=== PATIENT | female | born 1985 | race Caucasian/White ===

== ENCOUNTER 2021-01-23 10:33 | Emergency (ER) | payer OTHER, SELFPAY ==
--- NOTE | 2021-01-23 10:47 | PC.NURSE ---
Pt came to intake desk stating she doesnt want to wait and will go to another hospital. Pt ambulatory on discharge and told she is welcome to come back and be seen at anytime.
== END 2021-01-23 10:47 | disposition left against medical advice (07) ==
DX: Z53.21 Procedure and treatment not carried out due to patient leaving prior to being seen by health care provider (principal)
CPT/HCPCS: 99199

== ENCOUNTER 2022-12-09 17:09 | Emergency (ER) | payer OTHER, MEDICAID, SELFPAY ==
[2022-12-09 17:23] VITALS: BP 148/95; PULSE 114; RESP 18; TEMP 37; O2SAT 98
--- NOTE | 2022-12-09 17:32 | ED.URI ---
HPI - URI/Sore Throat General Chief Complaint: Upper Respiratory Infection Stated Complaint: Ear Pain/Sinus Congestion Time Seen by Provider: 12/09/22 17:50 Source: patient, RN notes reviewed and old records reviewed Mode of arrival: ambulatory Limitations: no limitations History of Present Illness HPI Narrative: 37-year-old female presents to the [facility] with complaints of a sore throat since having a upper GI study scope on 1 week ago. States that she woke up today with left ear pain and left sinus pressure. States that she tried calling her primary care provider and was not able to get her in today. Denies fevers. States that she uses a nasal spray, takes singular are as well as Zyrtec every day Related Data Home Medications Medication Instructions Recorded Confirmed azelastine 137 mcg (0.1 %) nasal intranasal 12/09/22 spray aerosol fluticasone propionate 50 intranasal 12/09/22 mcg/actuation nasal spray,suspension hyoscyamine sulfate 0.375 mg mg PO 12/09/22 tablet,extended release,12 hr norethindrone acetate 1.5 tablet 12/09/22 mg-ethinyl estradiol 30 mcg tablet (June) Allergies Allergy/AdvReac Type Severity Reaction Status Date / Time clindamycin Allergy Verified 10/08/11 04:45 Review of Systems Review of Systems: All systems reviewed & are unremarkable except as noted in HPI and below Constitutional: Constitutional: Reports no additional constitutional complaints Eyes: Eyes: Reports no additional eye complaints ENT: Reports as per HPI Cardiovascular: Cardiovascular: Reports no additional cardiovascular complaints, Denies chest pain and Denies dyspnea Respiratory: Respiratory: Reports no additional respiratory complaints, Denies chest congestion, Denies cough and Denies dyspnea Gastrointestinal: Gastrointestinal: Reports no additional gastrointestinal complaints, Denies abdominal pain, Denies nausea and Denies vomiting Musculoskeletal: Musculoskeletal: Reports no additional musculoskeletal complaints Integumentary/Breasts: Skin/Breast: Reports system reviewed and no additional complaints, except as docu Neurologic: Reports system reviewed and no additional complaints, except as documented Psychiatric: Psychiatric: Reports no additional psychiatric complaints Allergic/Immunologic: Allergic/Immunologic: Reports no additional allergic/immunologic complaints PMFSH Comments At the time of my signature, I reviewed and agree with the nursing past medical, surgical, social, and family history. There is no relevant family history pertinent to the patient complaint. Exam Const: General: cooperative, healthy appearing, comfortable, no acute distress, well developed, alert and well nourished Nutritional Appearance: well nourished and obese Orientation/consciousness: patient oriented x3 Limitations: no limitations HENMT: Head: normal to inspection Ears: hearing grossly normal bilaterally, external ears normal, TM's normal bilaterally and Abnormal EAC present erythema on the left and EAC tenderness on the left Face/Nose/Sinus: Normal external nose present, Normal nares present, Normal nasal mucous membranes and turbinates present, Normal septum present, No nasal discharge present, no nasal discharge noted, normal facial exam, sinuses nontender and face symmetric Face and sinus: normal facial exam Mouth: Yes Normal oral and palatal mucosa present, Yes lip normal and Yes moist mucous membranes Throat: posterior oropharynx normal, uvula midline and postnasal drainage Eyes: General: appearance normal, both eyes and all related structures Alignment and Position: alignment normal Periorbital: periorbital findings normal Pupils: Equal, round and reactive pupils present EOM: EOMs intact bilaterally Neck: Neck: normal visual inspection, full ROM, no lymphadenopathy and no meningeal signs Chest: Chest palpation & inspection: normal inspection of the chest Resp: Effort & Inspection:
== END 2022-12-09 18:08 | disposition home or self-care (01) ==
PROVIDERS: Emergency Provider Nurse Practitioner; PCP Family Medicine
DX: J32.9 Chronic sinusitis, unspecified (principal); H92.02 Otalgia, left ear
CPT/HCPCS: 99213; G0463

== ENCOUNTER 2023-03-22 15:04 | Emergency (ER) | payer OTHER, MEDICAID, SELFPAY ==
[2023-03-22 15:12] VITALS: BP 156/66; PULSE 98; RESP 18; TEMP 37.2; O2SAT 100
--- NOTE | 2023-03-22 15:14 | ED.URI ---
HPI - URI/Sore Throat General Chief Complaint: Upper Respiratory Infection Stated Complaint: sore throat Source: patient and RN notes reviewed Related Data Home Medications Medication Instructions Recorded Confirmed azelastine 137 mcg (0.1 %) nasal intranasal 12/09/22 spray aerosol amitriptyline 10 mg tablet 10 mg PO TID 03/22/23 03/22/23 dicyclomine 20 mg tablet 20 mg PO BID 03/22/23 03/22/23 Allergies Allergy/AdvReac Type Severity Reaction Status Date / Time clindamycin Allergy Hives Verified 03/22/23 15:12 Review of Systems Review of Systems: CONSTITUTIONAL: Denies fever, chills, or sweats. EYES: Denies visual changes, redness, or discharge. ENT: sore throat, right ear irritation CARDIOVASCULAR: Denies chest pain, palpitations, or edema. RESPIRATORY: Denies cough or dyspnea. GASTROINTESTINAL: Denies abdominal pain, nausea, vomiting, or diarrhea. GENITOURINARY: Denies dysuria or hematuria. SKIN: Denies rash or itching. MUSCULOSKELETAL: Denies back pain, joint pain, or myalgia. NEUROLOGIC: Denies headache, numbness, or weakness. Pertinent positives per HPI. PMFSH Comments At the time of my signature, I reviewed and agree with the nursing past medical, surgical, social, and family history. There is no relevant family history pertinent to the patient complaint. Exam Narrative: GENERAL: This is a well-nourished, well-developed patient, in no apparent distress. HEAD: normocephalic, atraumatic. EYES: Sclera clear/white. Vision is grossly intact. EARS: External ears normal, auditory canals clear and without drainage, TMs normal without perforation. Hearing grossly intact. NOSE: External nose normal with no obvious nasal discharge, nares without redness, no rhinorrhea. THROAT: Mucous membranes moist, posterior pharynx normal. NECK: Neck supple, non-tender without lymphadenopathy, masses or thyromegaly. CARDIOVASCULAR: Regular rate and rhythm without murmurs, gallops, or rubs. RESPIRATORY: Clear to auscultation. Breath sounds equal bilaterally. No wheezes, rales, or rhonchi. GASTROINTESTINAL: Abdomen soft, non-tender, nondistended. Bowel sounds are active. No hepato-splenomegaly, or palpable masses. No guarding. SKIN: warm, intact with no suspicious lesions or rash, good texture and turgor. NEURO: awake, alert, and oriented to person, place and time. There were no obvious focal neurologic abnormalities. Course Course Level of Care: Express Care Visit Vital Signs Vital signs: Vital Signs Temperature 98.9 F 03/22/23 15:12 Pulse Rate 98 03/22/23 15:12 Respiratory Rate 18 03/22/23 15:12 Blood Pressure 156/66 H 03/22/23 15:12 Pulse Oximetry 100 03/22/23 15:12 Oxygen Delivery Room Air 03/22/23 15:12 Temperature 98.9 F 03/22/23 15:12 Pulse Rate 98 03/22/23 15:12 Respiratory Rate 18 03/22/23 15:12 Blood Pressure 156/66 H 03/22/23 15:12 Pulse Oximetry 100 03/22/23 15:12 Oxygen Delivery Room Air 03/22/23 15:12 reviewed MDM - URI/Sore Throat MDM Narrative Medical decision making narrative: Rapid strep is negative in the office; however we will send to the lab for confirmation; there is a small percentage chance that it can come back positive; if it is, we will call you in 2-3days; and your prescription will be call in to your pharmacy. However, there is NO indication for antibiotic at this time. -Increase your fluids and Vitamin C. -Oral rinses such as: Salt water gargles and/or may use topical anesthetic (eg. Chloraseptic spray) or lozenges to relieve dryness or throat pain. -Take tylenol and ibuprofen as needed for pain and fever as directed. -Frequent hand washing or hand weatherization field technician is one of the best ways to prevent spread of infection. -Follow up with primary care provider in 2-3 days if condition is not improving or seek ER visit if your child starts breathing fast/has trouble breathing, is not drinking enough fluids, muffle voice, difficulty opening the mo
== END 2023-03-22 15:28 | disposition home or self-care (01) ==
PROVIDERS: Emergency Provider Nurse Practitioner Family; PCP Family Medicine
DX: J02.9 Acute pharyngitis, unspecified (principal)
CPT/HCPCS: 87081; 87880; 99213; G0463

== ENCOUNTER 2024-12-10 12:49 | Outpatient (CLI) | payer OTHER, SELFPAY ==
--- OUTSIDE RECORDS SUMMARY | 2024-12-10 12:54 | XMS_ITS | Clinical Summary ---
Author Organization [facility] Address [address] [place] [address] Care Team Providers Care Spa Consultant Name Role Phone Rodolfo Casas MD Primary Care Provider [phone] Allergies Active Allergy Reactions Criticality Noted Date Comments Clindamycin Hives High 07/01/2024 Medications FLUoxetine (PROzac) 20 mg tablet 5 Active albuterol HFA (PROVENTIL HFA,VENTOLIN HFA,PROAIR HFA) 90 mcg/actuation inhalerIndicati ons:Bronchitis Inhale 2 puffs every 4 (four) hours as needed for shortness of breath or wheezing (Cough) 18 g 5 Active inhalational spacing device (Aerochamber MV) spacerIndicatio ns:Bronchitis Use with albuterol inhaler 1 each 5 Active benzonatate (TESSALON) 200 mg capsuleIndicati ons:Bronchitis Take 1 capsule (200 mg total) by mouth 3 (three) times a day as needed for cough 30 capsule 5 Active Active Problems No known active problems Social History Tobacco Use Types Packs/Day Years Used Date Smoking Tobacco: Never Assessed Comments No Sex and Gender Information Value Date Recorded Sex Assigned at Not on file Legal Sex Female 2:14 PM OCCUPATIONAL HEALTH NURSING DIRECTOR Gender Identity Not on file Sexual Orientation Not on file Obstetrics History Last Filed Vital Signs Vital Sign Reading Time Taken Comments Blood Pressure 148/104 07/01/2024 7:58 PM OCCUPATIONAL HEALTH NURSING DIRECTOR Pulse 96 07/01/2024 8:03 PM OCCUPATIONAL HEALTH NURSING DIRECTOR Temperature 36.9 C (98.4 F) 07/01/2024 7:36 PM OCCUPATIONAL HEALTH NURSING DIRECTOR Respiratory Rate 18 07/01/2024 8:03 PM OCCUPATIONAL HEALTH NURSING DIRECTOR Oxygen Saturation 97% 07/01/2024 7:36 PM OCCUPATIONAL HEALTH NURSING DIRECTOR Inhaled Oxygen Concentration - - Weight 134.3 kg (296 lb) 07/01/2024 7:36 PM OCCUPATIONAL HEALTH NURSING DIRECTOR Height 167.6 cm (5' 6) 07/01/2024 7:36 PM OCCUPATIONAL HEALTH NURSING DIRECTOR Body Mass Index 47.78 07/01/2024 7:36 PM OCCUPATIONAL HEALTH NURSING DIRECTOR Plan of Treatment Health Maintenance Due Date Last Done Comments Cervical Cancer Screening 1986 Depression Screening 1986 Hepatitis C Screening 1986 DTaP/Tdap/Td Vaccine (1 - Tdap) 1997 Varicella Vaccines (1 of 2 - 13+ 2-dose series) 11/23/1999 Hepatitis B Screening 2004 Regular Well Visit/Exam 18-64 2004 HPV Vaccines (1 - 3-dose SCD M series) 2013 Covid-19 Vaccine (2 - 2023-2 5 season) 2024 08/22/2020 Influenza Vaccine (#1) 2025 02/20/2019 Pneumococcal vaccine <65 Aged Out No longer eligible based on patient's age to complete this topic Insurance [employer] OOS IDPA [employer] OPEN ACCESS Care Teams Spa Consultant Relationship Specialty Start Date End Date Rodolfo Casas MD PCP - General 01/23/21
--- OUTSIDE RECORDS SUMMARY | 2024-12-10 12:54 | XMS_ITS | Clinical Summary ---
Author Organization [facility] Address [address] [place] [address] Phone Care Team Providers Care Industrial Design Engineer Name Role Phone Rodlofo Casas MD Primary Care Provider [phone] Allergies Active Allergy Reactions Criticality Noted Date Comments Clindamycin Other (see Comments) 12/14/2017 Medications Azelastine-Flut icasone (DYMISTA) 137-50 MCG/ACT Suspension by Nasal route. Active montelukast (SINGULAIR) 10 MG Tablet Take 10 mg by mouth every evening. Active MRY-RB-GEATFTKI A 0.18/0.215/0.25 MG-25 MCG Tablet 8 Active Cetirizine HCl (ZYRTEC ALLERGY PO) Take by mouth. Active MICROGESTIN 1.5-30 MG-MCG Tablet 8 Active amoxicillin-cla vulanate (AUGMENTIN) 875-125 MG Tablet 5 Active FLUoxetine HCl, PMDD, 20 MG Tablet 5 Active HYDROcodone-ivette taminophen (NORCO) 5-325 MG Tablet take 1 tablet by mouth three times daily as needed 5 Active predniSONE (DELTASONE) 10 MG Tablet TAKE 6 TABLETS BY MOUTH ONCE DAILY FOR 2 DAYS THEN TAKE 5 TABS ONCE DAILY FOR 2 DAYS THEN TAKE 4 TABS ONCE DAILY FOR 2 DAYS THEN TAKE 3 TABS ONCE DAILY FOR 2 DAYS THEN TAKE 2 TABS ONCE DAILY FOR 2 DAYS THEN TAKE 1 TAB ONCE DAILY FOR 2 DAYS 5 Active albuterol (PROVENTIL, VENTOLIN) (2.5 MG/3ML) 0.083% Nebulizer Soln 8 12/07/19 Discontinu ed(Duplica te Order) VENTOLIN HFA 108 (90 Base) MCG/ACT Aerosol Solution 8 12/07/19 25 Discontinu ed(Duplica te Order) Active Problems No known active problems Encounters Date Type Department Care Team Description 12/06/2024 10:00 AM CDT Office Visit [facility] [address] [place] [address] Zaida Roper MD Hyperacusis of right ear (Primary Dx); Quintanilla palsy; Otalgia of right ear; Right temporomandibular joint disorder, unspecified Discharge Disposition: Discharged to home or Selfcare 12/06/2024 Travel 12/06/2024 Telephone [facility] [address] [facility] [place] [address] Zaida Roper MD from Last 3 Months Social History Tobacco Use Types Packs/Day Years Used Date Smoking Tobacco: Former Cigarettes 0.5 15 Smokeless Tobacco: Never Tobacco Cessation:Counseling Given: Not Answered Alcohol Use Standard Drinks/Week Comments No 0 (1 standard drink = 0.6 oz pur e alcohol) Comments No Sex and Gender Information Value Date Recorded Sex Assigned at Not on file Legal Sex Female 9:59 PM CDT Gender Identity Not on file Sexual Orientation Not on file Last Filed Vital Signs Vital Sign Reading Time Taken Comments Blood Pressure 134/88 12/06/2024 9:54 AM CDT Pulse 84 12/06/2024 9:54 AM CDT Temperature 37.1 C (98.7 F) 04/10/2018 9:37 AM PERSONAL CONSULTANT Respiratory Rate 20 04/10/2018 9:37 AM PERSONAL CONSULTANT Oxygen Saturation 93% 12/06/2024 9:54 AM CDT Inhaled Oxygen Concentration - - Weight 137 kg (302 lb) 12/06/2024 9:54 AM CDT Height 167.6 cm (5' 6) 12/06/2024 9:54 AM CDT Body Mass Index 48.74 12/06/2024 9:54 AM CDT Plan of Treatment Upcoming Encounters Date Type Department Care Team (Late st Contact Info) Description 12/13/2024 10:00 AM CDT Office Visit [facility] [place] [address] [id number] Zaida Roper MD [address] [place] [address] [address] Health Maintenance Due Date Last Done Comments Hepatitis C Virus (HCV) Screening 1986 TdaP Immunization 1986 Human Papillomavirus (HPV) Immunization (1 - 3-dose series) 2001 Hepatitis B Immunization (1 of 3 - 19+ 3-dose series) 2005 Pap Smear 11/23/2007 Cervical Cancer Screening (CCS) 2016 HPV/Cotest 2016 SARS-COV-2 Immunization ( season) 2024 07/07/2021, 08/22/2020 Influenza Immunization (#1) 2025 11/0 10/2023, 02/20/2019 Respiratory Syncytial Virus (RSV) Immunization (Adult) (1 - 1-dose 75+ series) 2061 Meningococcal Immunization (ACWY) Aged Out No longer eligible b ased on patient's age to complete this topic Pneumococcal Immunization Combined Aged Out No longer eligible b ased on patient's age to complete this topic Rotavirus Immunization Aged Out No lo nger eligible based on patient's age to complete this topic Procedures Procedure Name Priority Date/Time Associated Diagnosis Comments TYMPANOMETRY Routine 12/06/2024 10:00 AM CDT Hyperacusis of right ear Quintanilla palsy Otalgia of right ear Right temporomandibular joint disorder, unspecified from Last 3 Months Results * TYMPANOMETRY (12/06/2024 10:00 AM CDT) Narrative Zaida Roper MD - 12/06/2024 10:00 AM CDT Zaida Roper MD 12/06/2024 11:10 AM Tympanometry: Right ear: type A curve with normal external canal volume, -8 dapa, ipsilateral reflex absent Left ear: type A curve with normal external canal volume, -32 dapa , ipsilateral reflex absent Zaida Roper MD ND - OTORHINOLARYNGOLOGIC Final Result from Last 3 Months Insurance Care Teams Industrial Design Engineer Relationship Specialty [place] [id number] [place] [address] PCP - General Family Medicine 01/23/18
--- OUTSIDE RECORDS SUMMARY | 2024-12-10 12:54 | XMS_ITS | Clinical Summary ---
Author Organization [facility] Address [address] [place] [address] Care Team Providers Care Substance Abuse Counselor Name Role Phone Rodolfo Casas MD Primary Care Provider [phone] Allergies Active Allergy Reactions Criticality Noted Date Comments Clindamycin Hives 01/23/2021 Medications montelukast 10 MG tablet Take 10 mg by mouth nightly at bedtime. Active cetirizine 5 MG tablet Take 5 mg by mouth daily. Active Active Problems No known active problems Social History Tobacco Use Types Packs/Day Years Used Date Smoking Tobacco: Former Smokeless Tobacco: Never Alcohol Use Standard Drinks/Week Comments Never 0 (1 standard drink = 0.6 oz pur e alcohol) Comments No Sex and Gender Information Value Date Recorded Sex Assigned at Not on file Legal Sex Female 10:07 PM TIRE MAN Gender Identity Not on file Sexual Orientation Not on file Last Filed Vital Signs Vital Sign Reading Time Taken Comments Blood Pressure 140/82 01/23/2021 2:00 PM CDT Pulse 77 01/23/2021 2:15 PM CDT Temperature 36.7 C (98 F) 01/23/2021 11:43 AM CDT Respiratory Rate 15 01/23/2021 2:15 PM CDT Oxygen Saturation 100% 01/23/2021 2:15 PM CDT Inhaled Oxygen Concentration - - Weight 117.9 kg (260 lb) 01/23/2021 11:43 AM CDT Height 165.1 cm (5' 5) 01/23/2021 11:43 AM CDT Body Mass Index 43.27 01/23/2021 11:43 AM CDT Plan of Treatment Health Maintenance Due Date Last Done Comments Cervical Cancer Screening Pa p Smear (Age 30 to 64) Every 3 Years 1986 Annual Physical 1989 Hepatitis C 2004 DTaP, Tdap and Td Vaccines ( 1 - Tdap) 2005 Hepatitis B Vaccines (1 of 3 - 19+ 3-dose series) 2005 HPV Vaccines (1 - 3-dose SCD M series) 2013 Cervical Cancer Screening Pa p with HPV Testing (Age 30 to 64) Every 5 Years 2016 Cervical Cancer Screening with HPV 2016 COVID-19 Vaccine (2 - 2023-2 5 season) 2024 08/22/2020 Meningococcal B Vaccine Aged Out No l onger eligible based on patient's age to complete this topic Meningococcal Vaccine Aged Out No hillary maegan eligible based on patient's age to complete this topic Pneumococcal Vaccine: Pediat rics (0 to 5 Years) and At-Risk Patients (6 to 49 Years) Aged Out No longer eligi ble based on patient's age to complete this topic RSV Immunizations Under 20 Months Aged Out No longer eligible based on patient's age to complete this topic Insurance [facility] AET Care Teams Substance Abuse Counselor Relationship Specialty Start Date End Date Rodolfo Casas MD PCP - General FAMILY PRACTICE 01/23/21
--- OUTSIDE RECORDS SUMMARY | 2024-12-10 12:54 | XMS_ITS | Referral Summary ---
Author Organization [facility] Address [address] [place] [address] Care Team Providers Care Director Of Community Education Name Role Phone Rodolfo Casas MD Primary Care Provider [phone] Allergies Active Allergy Reactions Criticality Noted Date [...] on file Legal Sex Female 2:14 PM LBD TEACHER Gender Identity Not on file Sexual Orientation Not on file Last Filed Vital Signs Vital Sign Reading Time Taken Comments Blood Pressure 148/104 07/01/2024 7:58 PM LBD TEACHER Pulse 96 07/01/2024 8:03 PM LBD TEACHER Temperature 36.9 C (98.4 F) 07/01/2024 7:36 PM LBD TEACHER Respiratory Rate 18 07/01/2024 8:03 PM LBD TEACHER Oxygen Saturation 97% 07/01/2024 7:36 PM LBD TEACHER Inhaled Oxygen Concentration - - Weight 134.3 kg (296 lb) 07/01/2024 7:36 PM LBD TEACHER Height 167.6 cm (5' 6) 07/01/2024 7:36 PM LBD TEACHER Body Mass Index 47.78 07/01/2024 7:36 PM LBD TEACHER Plan of Treatment Not on file Insurance [employer] OOS IDPA [employer] OPEN ACCESS Care Teams Director Of Community Education Relationship Specialty Start Date End Date Rodolfo Casas MD PCP - General 01/23/21
== END 2024-12-10 12:50 | disposition home or self-care (01) ==
LOC: ANHAUDASC 12:50
PROVIDERS: PCP Family Medicine; Visit Provider Otolaryngology Otolaryngology/Facial Plastic Surgery
DX: H90.11 Conductive hearing loss, unilateral, right ear, with unrestricted hearing on the contralateral side (principal); H93.11 Tinnitus, right ear; H92.01 Otalgia, right ear; H74.8X1 Other specified disorders of right middle ear and mastoid; H93.231 Hyperacusis, right ear; G51.0 Bell's palsy; Z86.69 Personal history of other diseases of the nervous system and sense organs
CPT/HCPCS: 92557; 92567